=== PATIENT | male | born 1990 | race Caucasian/White ===

== ENCOUNTER 2017-05-06 03:32 | Emergency (ER) | payer SELFPAY ==
[2017-05-06 03:38] VITALS: BP 116/64; BMI 23.6
[2017-05-06] MEDS ORDERED: TORADOL 60 MG VIAL IM ONE (03:49)
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
[2017-05-06] MEDS ORDERED: TORADOL 60 MG VIAL ONE (03:51)
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
== END 2017-05-06 05:00 | disposition home or self-care (01) ==
LOC: ER 03:32
DX: S20.219A Contusion of unspecified front wall of thorax, initial encounter (principal); J32.3 Chronic sphenoidal sinusitis; M79.89 Other specified soft tissue disorders; Y04.0XXA Assault by unarmed brawl or fight, initial encounter; Y92.9 Unspecified place or not applicable
CPT/HCPCS: 70486; 71111; 96372; 99283; J1885